=== PATIENT | male | born 1955 | race Caucasian/White ===

== ENCOUNTER 2019-01-22 08:42 | Day surgery (SDC) | payer MEDICARE, OTHER ==
[~2019-01-22] VITALS: Ht 182.9 cm; Wt 89.8 kg
[~2019-01-22 08:42] MED LIST: ASPIRIN325 MG PO; BACTRIM DS TAB1 EACH PO; CEPHALEXIN500 MG PO; COZAAR25 MG PO; DAILY VITAMIN1 EAC2 PO; DESONIDE15 G1 TP; FENOFIBRATE145 MG PO; HUMALOG100 UNIT/1 SUB-Q; LANTUS100 UNITS/ SUB-Q; LEVEMIR FL100 UNIT/2 SUB-Q; LIPITOR20 MG PO; LISINOPRIL5 MG PO; LOVASTATIN20 MG PO; NORCO 5-325 TA1 EACH PO; NOVOLOG FL100 UNIT/1 SUB-Q; OMEPRAZOLE20 MG PO; PRILOSEC20 MG PO; SULFAMETHOXAZO1 EAC1 PO; ULTRAM50 MG PO; VENTOLIN HFA18 GM INH; VITAMIN D5000 UNIT PO
--- NOTE | 2019-01-22 10:22 | NUR ---
01/22/19 Shryea2 [place] 1014-PATIENT ARRIVED TO PACU ON 3L NC REACTIVE TO VERBAL STIMULI OPENING EYES. VERY DROWSY BACK TO SLEEP SNORING. ABDOMEN SOFT. 1021-PATIENT AROUSES TO VERBAL STIMULI DENIES PAIN OR NAUSEA. COUGHING NONPRODUCTIVE. DOZES BACK TO SLEEP.
--- NOTE | 2019-01-23 06:17 | OR ---
[facility] [address] [place], [place] [address] Signed DATE OF OPERATION: 01/22/2019 SURGEON: Clau Ozuna MD PREOPERATIVE DIAGNOSES: 1. Gastroesophageal reflux disease. 2. Heartburn and nausea. 3. Asthma with cough variant. 4. Esophageal dysphagia. 5. Diarrhea. POSTOPERATIVE DIAGNOSES: 1. Mild gastroduodenitis. 2. Mkwtj-kc-wvxpimgd sized hiatal hernia. 3. Distal esophagitis. PROCEDURES: 1. Upper endoscopy. 2. Esophagogastroduodenoscopy with CLOtest and biopsies of the duodenum, pyloric bulb, antrum, and gastroesophageal junction. ESTIMATED BLOOD LOSS: None. INDICATIONS: Davian is a 63-year-old diabetic gentleman who has had significant trouble with asthma and a cough variant associated with heartburn and acid reflux. 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 He has been on his omeprazole and he feels like his symptoms have not changed. Of course, he is worried about hiatal hernia and acid reflux. He is aware that 98% of people with acid reflux will have a hiatal hernia. He said he has never had a previous upper endoscopy. He also mentions some esophageal dysphagia and diarrhea. He said he gave up cough and he does use quite a bit antacids as well. Of course, it is worse if he eats or drinks. In the office, I gave him a pamphlet on upper endoscopy. We looked at that together along with the risks including, but not limited to gas bloating, crampy abdominal pain, bleeding, perforation, requiring surgery, and missed diagnosis. He also understands the need for IV conscious sedation. He had expressed understanding and wished to proceed. PROCEDURE NOTE: Davian was taken into our endoscopy suite and placed in the supine semi-recumbent Electronically Signed By: CLAU OZUNA MD 01/23/19 0617 PATIENT NAME: DAVIAN PENA OPERATIVE REPORT DATE OF : 51 REPORT #: [id number] PHYSICIAN: CLAU OZUNA MD PCP: KAPIL CASILLAS DO REPORT IS CONFIDENTIAL AND NOT TO BE RELEASED WITHOUT AUTHORIZATION [facility] [address], [place] [address] Signed position. The posterior oropharynx was anesthetized with lidocaine spray. A bite block was utilized for the case. He was given a total of 10 mg of Versed and 100 mcg of fentanyl, and he was awake and talking to us as we left the room. He did get some clear saliva on his vocal cord and he was coughing and moving about quite a bit during the procedure. In fact, we initially placed our gastroscope in the posterior oropharynx and we stopped and had to give additional sedation and suctioned out the saliva. Eventually, we were able to pass the scope down the esophagus and out into the duodenum without resistance under direct visualization. The duodenum itself was fine. We took a biopsy of the duodenum because of the history of diarrhea. The pyloric bulb showed just a little irritation along with the stomach. We took biopsies of the pyloric bulb and antrum for pathologic review. A biopsy was taken of the antrum for CLOtest. Upon retroflexion of the scope, he clearly had a robby-tu-swgyfaus sized hiatal hernia. There were no gastric or esophageal varices. No ulcerations. The scope was withdrawn up through the area of the GE junction, which was compliant without stricture. He had gsyr-sf-jbbdgpdj disruption of his Z-line. No obvious Dhillon mucosa. We went ahead and took several biopsies along the Z-line. The distal middle and upper esophagus were unremarkable. After this, the gas was suctioned out and the gastroscope removed. Overall, Davian tolerated procedure quite well. RECOMMENDATIONS: I will see Davian back in my office in 7 to 14 days to review his results. He asked me not to talk to his brother currently and to review the results with him in the office. Clau Ozuna MD [facility] /[id number] cc: MD Rasheed Gordon MD Emily Castillo, ARNP Arian Kargar, DO Electronically Signed By: CLAU OZUNA MD 01/23/19 0617 PATIENT NAME: DAVIAN PENA OPERATIVE REPORT DATE OF : 51 REPORT #: [id number] PHYSICIAN: CLAU OZUNA MD PCP: KAPIL CASILLAS DO REPORT IS CONFIDENTIAL AND NOT TO BE RELEASED WITHOUT AUTHORIZATION [facility] [address] [place] [address] Signed Osmar Barrow MD Copies: CLAU OZUNA MD, TIMOTHY MD CASTILLO, EMILY ARNP KARGAR, ARIAN DO ROGERS,OSMAR BACA ~ Electronically Signed By: CLAU OZUNA MD 01/23/19 0617 PATIENT NAME: DAVIAN PENA OPERATIVE REPORT DATE OF : 51 REPORT #: [id number] PHYSICIAN: CLAU OZUNA MD PCP: KAPIL CASILLAS DO REPORT IS CONFIDENTIAL AND NOT TO BE RELEASED WITHOUT AUTHORIZATION
== END 2019-01-22 11:20 | disposition home or self-care (01) ==
LOC: OPS 08:42 → DS 08:42 → OPS 09:45
PROVIDERS: Colon & Rectal Surgery
PROC: 0DB78ZX Excision of Stomach, Pylorus, Via Natural or Artificial Opening Endoscopic, Diagnostic (ICD-10-PCS; 2019-01-22)
PROC: 0DB48ZX Excision of Esophagogastric Junction, Via Natural or Artificial Opening Endoscopic, Diagnostic (ICD-10-PCS; 2019-01-22)
PROC: 0DB98ZX Excision of Duodenum, Via Natural or Artificial Opening Endoscopic, Diagnostic (ICD-10-PCS; principal; 2019-01-22 09:45)
DX: K29.50 Unspecified chronic gastritis without bleeding (principal); K29.80 Duodenitis without bleeding; K31.9 Disease of stomach and duodenum, unspecified; K21.0 Gastro-esophageal reflux disease with esophagitis; K44.9 Diaphragmatic hernia without obstruction or gangrene; J45.909 Unspecified asthma, uncomplicated; E11.22 Type 2 diabetes mellitus with diabetic chronic kidney disease; N18.3 Chronic kidney disease, stage 3 (moderate); E78.5 Hyperlipidemia, unspecified; F17.200 Nicotine dependence, unspecified, uncomplicated; Z88.0 Allergy status to penicillin; Z79.899 Other long term (current) drug therapy; Z79.82 Long term (current) use of aspirin
CPT/HCPCS: 86677; 99153; G0500; J2250; J3010; J7120

== ENCOUNTER 2020-09-09 07:10 | Day surgery (SDC) | payer MEDICARE, OTHER ==
[~2020-09-09] VITALS: Ht 182.9 cm; Wt 86.4 kg
[~2020-09-09 07:10] MED LIST changes: +INVOKANA100 MG PO
--- NOTE | 2020-09-09 09:30 | NUR ---
09/09/20 0930 Edith Knowles 0858 PT ARRIVED IN PACU SLEEPY WITH NO C/O'S. ABD SOFT. 0905 PT AWAKE AND TALKING TO STAFF. 0915 SITTING UP IN BED TALKING TO STAFF. DC INSTRUCTIONS GIVEN. ALL QUESTIONS ANSWERED. 0930 LEFT VIA W/C.
--- NOTE | 2020-09-09 13:47 | OR ---
[facility] [address] [place], [place] [address] Signed DATE OF OPERATION: 09/09/2020 SURGEON: Clau Ozuna MD PREOPERATIVE DIAGNOSES: 1. Anemia. 2. Gastroesophageal reflux disease with his hiatal hernia. 3. Gastroduodenitis and esophagitis. 4. Prostate cancer, status post radiation therapy. 5. Internal and external hemorrhoids. 6. Cecal diverticula x2. POSTOPERATIVE DIAGNOSES: 1. Moderate sized hiatal hernia. 2. Moderate distal esophagitis. 3. Poor bowel prep. 4. Minimal external hemorrhoids. PROCEDURE: 1. Esophagogastroduodenoscopy with CLOtest and biopsies of the antrum and distal esophagus. 2. Limited colonoscopy without biopsy to 60 cm. ESTIMATED BLOOD LOSS: None. INDICATIONS: Davian is a 65-year-old diabetic gentleman, asked to see me for upper and lower endoscopy. He has been found to be anemic with a normal mean cell volume. He really has no lower GI complaints. He always has upper GI complaints associated with his hiatal hernias and his acid reflux. We just did his upper endoscopy in December 2018. We knew he had gastroduodenitis and distal esophagitis. He has also had prostate cancer requiring radiation treatment. He talked about a colonoscopy back in around 2011. He was known to have internal and external hemorrhoids at that time along with two diverticula in the cecum. He gives no family history of colon cancer or polyps. He is basically not able to go to sleep with standard Versed and fentanyl. Consequently, he requires monitored anesthesia care with propofol infusion. I had given Davian pamphlets on both upper and lower endoscopy. We did review the nature of the two tests along with the risks including, but not limited to gas bloating, crampy abdominal pain, bleeding, perforation requiring surgery, and missed diagnosis. We had reviewed our Electronically Signed By: CLAU OZUAN MD 09/09/20 6747 PATIENT NAME: DAVIAN PENA OPERATIVE REPORT DATE OF : 51 REPORT #: [id number] PHYSICIAN: CLAU OZUNA MD PCP: KAPIL CASILLAS DO REPORT IS CONFIDENTIAL AND NOT TO BE RELEASED WITHOUT AUTHORIZATION [facility] [address] [place], [place] [address] Signed instructions for the bowel prep line by line. However, he took one 32 ounce bottle and said he was vomiting and never finished the second 32 ounce bottle. He is still having dark brown particulate stool matter this morning. In addition, we scheduled him for monitored anesthesia care as described above. He had expressed understanding and wished to proceed. PROCEDURE NOTE: Davian was taken into our endoscopy suite and placed in the supine semi-recumbent position. He was given IV propofol per our nurse brush cutter. The adult gastroscope was introduced and advanced under direct visualization of camera. He had some fluid in his distal esophagus and we suctioned that out as well as in the hiatal hernia. When we got into his stomach, he had liquid particulate food matter in the antrum and we suctioned that out as well. All told, probably 200 mL or so of fluid had been suctioned out. He had at least two pills in the antrum of his stomach. We passed the scope out into the duodenum and it was unremarkable along with the pyloric bulb. The stomach itself really was unremarkable. No evidence of any inflammatory changes in the duodenum or the stomach on this occasion. We really could not get a good view of the cardia on retroflexion of the scope. The scope was withdrawn up through the area of the GE junction and we could clearly see he has a moderate sized hiatal hernia. No ulceration in the hernia. No Roxi-Mullins tear. However, he continues to have moderate distal esophagitis. There were several linear areas traveling more than 3 cm up from the GE junction. No Dhillon's mucosa. We were having a lot of trouble with the propofol infusion and even then he was awake, coughing and moving around and it was quite difficult. We had taken a biopsy from the antrum for CLOtest as well as pathologic review. We took another biopsy in the distal esophagus. The middle and upper esophagus were unremarkable. After this, the gas had been suctioned out and the gastroscope removed. Immediately following this, he was placed under general endotracheal tube anesthesia by our anesthesia provider. Davian was then rotated into the left lateral decubitus position. He did have liquid dark particulate stool matter. A digital rectal exam was performed and this showed minimal external hemorrhoids. The adult colonoscope was introduced and we encountered the liquid dark particulate stool matter in the rectum and up the left colon. His prep was just too poor to be of any clinical significance. We never went past 60 cm. This is distal to the splenic flexure. Consequently, we withdrew the scope and suctioned out the gas. He will need to repeat his colonoscopy with a more prolonged bowel prep in order to avert his nausea and vomiting. Overall, he tolerated the procedure quite well. RECOMMENDATIONS: I will see Davian back in my office in 7 to 14 days to review his results. He will need to reschedule his bowel prep throughout his entire day. He will need to finish his Electronically Signed By: CLAU OZUNA MD 09/09/20 6027 PATIENT NAME: DAVIAN PENA OPERATIVE REPORT DATE OF : 51 REPORT #: [id number] PHYSICIAN: CLAU OZUNA MD PCP: KAPIL CASILLAS DO REPORT IS CONFIDENTIAL AND NOT TO BE RELEASED WITHOUT AUTHORIZATION [address] [place], [place] [address] Signed Cardiology workup as well. I suspect his anemia is from his distal esophagitis. Clau Ozuna MD ALB/MODL /[id number] cc: DO Dr. Kody Winn MD Emily Castillo, ARNP Mathias Stroemel, DO Copies: KAPIL CASILLAS DAVID DAVIDSON, TIMOTHY MD CASTILLO, EMILY ARNP STROEMEL, MATHIAS DO ~ Electronically Signed By: CLAU OZUNA MD 09/09/20 1347 PATIENT NAME: DAVIAN PENA OPERATIVE REPORT DATE OF : 51 REPORT #: [id number] PHYSICIAN: CLAU OZUNA MD PCP: KAPIL CASILLAS DO REPORT IS CONFIDENTIAL AND NOT TO BE RELEASED WITHOUT AUTHORIZATION
--- NOTE | 2020-09-11 14:08 | PATH ---
[facility] [address] [place], [place] [address] Signed SPECIMEN(S): A ANTRUM/PYLORUS SPECIMEN(S): B DISTAL ESOPHAGUS SPECIMEN SOURCE: A. ANTRUM/PYLORUS B. DISTAL ESOPHAGUS CLINICAL HISTORY: Anemia, reflux, hiatal hernia, distal esophagitis. Esophagogastroduodenoscopy, colonoscopy. MICROSCOPIC DESCRIPTION: Histologic sections of all submitted blocks are examined by light microscopy. These findings, together with the gross examination, support the pathologic diagnosis. FINAL PATHOLOGIC DIAGNOSIS: A. Antrum/pylorus, biopsy: - Benign gastric mucosa with minimal vascular congestion. - Negative for intestinal metaplasia. - Negative for Helicobacter organisms on routine stain. B. "Distal esophagus", biopsy: - Gastric type mucosa with minimally increased chronic inflammation. - Negative for squamous epithelium. - Negative for intestinal metaplasia. DDF:cml:C2NR GROSS DESCRIPTION: Two specimens are received in two containers, labeled "Davian Collins." A. The specimen, labeled "KarinaDavian, #1," and designated on the requisition "antrum/pylorus," is received in formalin and consists of one smith soft tissue fragment that measures 0.4 cm in greatest dimension. The specimen is entirely submitted in cassette (A1). B. The specimen, labeled "Davian Collins, #2," and designated on the requisition "distal esophagus," is received in formalin and consists of one white-smith soft tissue fragment that measures 0.4 cm in greatest dimension. The specimen is entirely submitted in cassette (B1). FB (under the direct supervision of a pathologist) The Gross Description was prepared using a voice recognition system. The report was reviewed for accuracy; however, sound-alike word errors, addition and/or deletions may occur. If there is any question about this report, please contact Client Services. PATIENT NAME: DAVIAN COLLINS PATHOLOGY DATE OF : 51 REPORT #: [id number] PHYSICIAN: VANESSA GARNER PCP: KAPIL CASILLAS DO REPORT IS CONFIDENTIAL AND NOT TO BE RELEASED WITHOUT AUTHORIZATION [facility] [address] [place], [place] [address] Signed PERFORMING LABORATORY: The technical component was performed by [place] [address] (Incinerator Attendant: Ryanne Boston MD; CLIA# [id number]). Professional interpretation was performed by [employer] [facility], [address] [address] (CLIA# [id number]). Diagnostician: Magdaleno Garces DO Pathologist Electronically Signed 09/11/2020 Copies: ~ PATIENT NAME: DAVIAN COLLINS PATHOLOGY DATE OF : 51 REPORT #: [id number] PHYSICIAN: VANESSA PATHOLOGY PCP: KAPIL CASILLAS DO REPORT IS CONFIDENTIAL AND NOT TO BE RELEASED WITHOUT AUTHORIZATION
== END 2020-09-09 09:30 | disposition home or self-care (01) ==
LOC: OPS 07:10 → DS 07:10 → OPS 08:15
PROVIDERS: ATTEND Colon & Rectal Surgery
PROC: 0DB78ZX Excision of Stomach, Pylorus, Via Natural or Artificial Opening Endoscopic, Diagnostic (ICD-10-PCS; 2020-09-09)
PROC: 0DJD8ZZ Inspection of Lower Intestinal Tract, Via Natural or Artificial Opening Endoscopic (ICD-10-PCS; principal; 2020-09-09 08:15)
PROC: 0DB38ZX Excision of Lower Esophagus, Via Natural or Artificial Opening Endoscopic, Diagnostic (ICD-10-PCS; 2020-09-09 08:15)
DX: K21.00 Gastro-esophageal reflux disease with esophagitis, without bleeding (principal); K44.9 Diaphragmatic hernia without obstruction or gangrene; D64.9 Anemia, unspecified; K64.4 Residual hemorrhoidal skin tags; N18.30 Chronic kidney disease, stage 3 unspecified; I12.9 Hypertensive chronic kidney disease with stage 1 through stage 4 chronic kidney disease, or unspecified chronic kidney disease; E11.22 Type 2 diabetes mellitus with diabetic chronic kidney disease; E11.42 Type 2 diabetes mellitus with diabetic polyneuropathy; E78.00 Pure hypercholesterolemia, unspecified; E11.51 Type 2 diabetes mellitus with diabetic peripheral angiopathy without gangrene; E66.9 Obesity, unspecified; N52.9 Male erectile dysfunction, unspecified; Z85.46 Personal history of malignant neoplasm of prostate; Z79.82 Long term (current) use of aspirin; Z79.899 Other long term (current) drug therapy; Z79.4 Long term (current) use of insulin; Z88.0 Allergy status to penicillin; Z87.891 Personal history of nicotine dependence; Z91.040 Latex allergy status
CPT/HCPCS: 86677; J2704; J7121

== ENCOUNTER 2020-10-21 06:38 | Day surgery (SDC) | payer MEDICARE, OTHER ==
[~2020-10-21 06:38] MED LIST changes: +JARDIANCE10 MG PO; +VITAMIN D31250 MCG PO
--- NOTE | 2020-10-21 08:01 | NUR ---
10/21/20 0801 Lynne White 0754- PT TO PACU IN LL POSITION. DOES NOT RESPOND TO VERBAL OR TACTILE STIMULI. SLEEPING WITH ORAL AIRWAY IN PLACE. SPO2 100% ON 10 L O2 VIA SIMPLE MASK. BREATHING EASY AND UNLABORED. 0800- PT CONTINUES TO SLEEP IN LL POSITION WITH ORAL AIRWAY IN PLACE. PT DOES NOT RESPOND TO TACTILE OR VERBAL STIMULI. SPO2 100% O2 TITRATED DOWN TO 6 L O2 VIA SIMPLE MASK. BREATHING EASY AND UNLABORED.
--- NOTE | 2020-10-21 08:46 | NUR ---
PT ALERT, ORIENTED AND HAS HAD PREVIOUS SCOPE. ALL QUESTIONS ASKED ANSWERED. PT DID REQUEST PRAYER, OR STAFF WAITING FOR PT. WILL FOLLOW NEEDED
--- NOTE | 2020-10-21 10:38 | OR ---
[facility] [address] [place], [place] [address] Signed DATE OF OPERATION: 10/21/2020 SURGEON: Clau Ozuna MD PREOPERATIVE DIAGNOSES: 1. Anemia with hemoglobin 11.9 and mean cell volume 84. 2. Incomplete colonoscopy (60 cm). 3. History of prostate cancer, status post radiation therapy. 4. Internal and external hemorrhoids. 5. Cecal diverticula x2. POSTOPERATIVE DIAGNOSES: 1. Minimal right and left-sided diverticulosis. 2. Minimal internal and external hemorrhoids. 3. Minimal radiation proctitis. 4. 4 mm polyp at 10 cm. PROCEDURE: Colonoscopy with hot biopsy. ESTIMATED BLOOD LOSS: None. INDICATIONS: Davian is a 65-year-old diabetic gentleman, asked to see me for upper and lower endoscopy. He was having anemia. His hemoglobin is 11.9 with a mean cell volume of 84. We also know that he has a history of prostate cancer requiring radiation therapy. He is known to have internal and external hemorrhoids. Also from previous colonoscopy, we know he has two diverticula in the cecum. A few weeks ago we did his upper and lower endoscopy. However, his bowel prep was quite poor. We could not advance the scope pass 60 cm due to the liquid particulate stool matter. Consequently, he returns now after doing a full day a bowel prep. He said trying to do the bowel prep in the evening was a little too quick for him and he ended up vomiting. On this occasion, he said his bowel prep is much better. He is well aware of colonoscopy. He understands there is risk including, but not limited to gas bloating, crampy abdominal pain, bleeding, perforation requiring surgery, and missed diagnosis. Also because of his significant medical issues, we always asked to have an anesthesia provider to help us with increased monitoring sedation with propofol. He had expressed understanding and wished to proceed. Electronically Signed By: CLAU OZUNA MD 10/21/20 1038 PATIENT NAME: DAVIAN PENA OPERATIVE REPORT DATE OF : 51 REPORT #: [id number] PHYSICIAN: CLAU OZUNA MD PCP: JONATHON CASILLAS DO REPORT IS CONFIDENTIAL AND NOT TO BE RELEASED WITHOUT AUTHORIZATION [facility] [address] [place], [place] [address] Signed PROCEDURE NOTE: Davian was taken into our endoscopy suite and placed in the left lateral decubitus position. He was given IV sedation per our nurse linux systems administrator. A digital rectal exam was performed and he has good sphincter tone. He has very minimal external hemorrhoid tissue. The prostate is completely flattened and gone. After this, the adult colonoscope had been introduced and advanced all around into the cecum under direct visualization of camera. It took a little extra sedation and abdominal compression in order to advance the scope around hepatic flexure and down into the cecum itself. On this occasion, his prep was much better. He had just a few small areas of liquid particulate stool matter, most of that was suctioned out. We could easily see the two diverticula in the cecum. We could also see the appendiceal orifice and the ileocecal valve. The scope was then slowly withdrawn. We took several pictures throughout for photodocumentation. We found some additional diverticula in the left colon and sigmoid colon on this occasion. All-in-all these were small to moderate in size, few in number, and scattered about. Once down in the rectum, we saw just a tiny 4 mm polyp at about 10 cm. That was easily removed with the help of hot biopsy forceps. We could also see just a little radiation proctitis 4 or 5 cm above the from the anal verge. The scope had been retroflexed and no additional pathology was noted above the anal canal. He does have minimal internal hemorrhoid tissue. After this, the gas was suctioned out and the colonoscope removed. Davian tolerated his procedure quite well. RECOMMENDATIONS: I will see Davian back in my office in 7 to 14 days to review his results. Also, he needs followup on his solid-phase gastric emptying scan for evaluation of diabetic gastroparesis. Clau Ozuna MD ALB/MODL /[id number] cc: MD Jonathon Gordon DO Electronically Signed By: CLAU OZUNA MD 10/21/20 1038 PATIENT NAME: DAVIAN PENA OPERATIVE REPORT DATE OF : 51 REPORT #: [id number] PHYSICIAN: CLAU OZUNA MD PCP: JONATHON CASILLAS DO REPORT IS CONFIDENTIAL AND NOT TO BE RELEASED WITHOUT AUTHORIZATION [address] [address] Signed Copies: CLAU OZUNA MD, ARIAN DO ~ Electronically Signed By: CLAU OZUNA MD 10/21/20 1038 PATIENT NAME: DAVIAN PENA OPERATIVE REPORT DATE OF : 51 REPORT #: [id number] PHYSICIAN: CLAU OZUNA MD PCP: JONATHON CASILLAS DO REPORT IS CONFIDENTIAL AND NOT TO BE RELEASED WITHOUT AUTHORIZATION
--- NOTE | 2020-10-22 11:25 | PATH ---
[facility] [address] [place], [place] [address] Signed SPECIMEN(S): A COLON POLYP AT 10 CM SPECIMEN SOURCE: A. COLON POLYP AT 10 CM CLINICAL HISTORY: Colonoscopy with poss. biopsy and polypectomy w/mac. Anemia. Postop: Rectal polyp, radiation proctitis, internal and external hemorrhoids. MICROSCOPIC DESCRIPTION: Histologic sections of all submitted blocks are examined by light microscopy. These findings, together with the gross examination, support the pathologic diagnosis. FINAL PATHOLOGIC DIAGNOSIS: Colon, polyp at 10 cm, polypectomy: - Fragments of cauterized tubular adenoma. - Negative for high-grade dysplasia or malignancy. NAL:cml:C2NR GROSS DESCRIPTION: The specimen, labeled "MW, 1," and designated on the requisition "colon polyp at 10 cm," is received in formalin and consists of two smith soft tissue fragments that measure 0.3-0.4 cm in greatest dimension. The specimen is entirely submitted in cassette (A1). AT (under the direct supervision of a pathologist) The Gross Description was prepared using a voice recognition system. The report was reviewed for accuracy; however, sound-alike word errors, addition and/or deletions may occur. If there is any question about this report, please contact Client Services. PERFORMING LABORATORY: The technical component was performed by [email or web address], [address] [place] [id number] (Instrument Maker Apprentice: Ryanne Boston MD; CLIA# [id number]). [email or web address], [address] [address] (CLIA# [id number]). Diagnostician: Ada Mckeon MD Pathologist Electronically Signed 10/22/2020 PATIENT NAME: JESSICA PENA PATHOLOGY DATE OF : 51 REPORT #: [id number] PHYSICIAN: [facility] PCP: KAPIL CASILLAS DO REPORT IS CONFIDENTIAL AND NOT TO BE RELEASED WITHOUT AUTHORIZATION [address] [address] Signed Copies: ~ PATIENT NAME: JESSICA PENA PATHOLOGY DATE OF : 51 REPORT #: [id number] PHYSICIAN: VANESSA PATHOLOGY PCP: KAPIL CASILLAS DO REPORT IS CONFIDENTIAL AND NOT TO BE RELEASED WITHOUT AUTHORIZATION
== END 2020-10-21 08:45 | disposition home or self-care (01) ==
LOC: OPS 06:38 → DS 06:38 → OPS 06:45 → DS 06:45 → OPS 08:45
PROVIDERS: ATTEND Colon & Rectal Surgery
PROC: 0DBP8ZX Excision of Rectum, Via Natural or Artificial Opening Endoscopic, Diagnostic (ICD-10-PCS; principal; 2020-10-21 06:45)
DX: K62.1 Rectal polyp (principal); K57.90 Diverticulosis of intestine, part unspecified, without perforation or abscess without bleeding; K64.8 Other hemorrhoids; K64.4 Residual hemorrhoidal skin tags; K62.7 Radiation proctitis; D64.9 Anemia, unspecified; E10.22 Type 1 diabetes mellitus with diabetic chronic kidney disease; E10.42 Type 1 diabetes mellitus with diabetic polyneuropathy; E10.319 Type 1 diabetes mellitus with unspecified diabetic retinopathy without macular edema; E10.43 Type 1 diabetes mellitus with diabetic autonomic (poly)neuropathy; N18.30 Chronic kidney disease, stage 3 unspecified; K31.84 Gastroparesis; Z79.82 Long term (current) use of aspirin; Z85.46 Personal history of malignant neoplasm of prostate; Z92.3 Personal history of irradiation
CPT/HCPCS: 88305; J2704; J7121

== ENCOUNTER 2021-03-01 11:54 | Emergency (ER) | payer MEDICARE, OTHER ==
[~2021-03-01] VITALS: Ht 182.9 cm; Wt 86.2 kg
[2021-03-01] MEDS ORDERED: BRIMONIDINE TART5 ML OPTH (12:12)
[2021-03-01] MEDS ORDERED: ZOFRAN4 MG PO (14:44)
--- NOTE | 2021-03-03 13:32 | EKG ---
[facility] [address] [place] [address] Signed Normal sinus rhythm Normal ECG When compared with ECG of 15-OCT-2020 14:57, Criteria for Inferior infarct are no longer present Confirmed by KAYLEE ABDULLAHI MD ([id number]) on 03/03/2021 1:31:49 PM Electronically Signed By: KAYLEE ABDULLAHI MD 03/03/21 1332 PATIENT NAME: ROSEMARYCARLOTAJESSICA Electrocardiogram DATE OF : 51 PHYSICIAN: KAYLEE ABDULLAHI MD REPORT #: [id number] REPORT IS CONFIDENTIAL AND NOT TO BE RELEASED WITHOUT AUTHORIZATION
== END 2021-03-01 15:06 | disposition home or self-care (01) ==
LOC: ED 11:54
DX: E11.65 Type 2 diabetes mellitus with hyperglycemia (principal); K21.9 Gastro-esophageal reflux disease without esophagitis; Z87.891 Personal history of nicotine dependence; Z88.0 Allergy status to penicillin; Z79.899 Other long term (current) drug therapy; Z79.82 Long term (current) use of aspirin; Z79.4 Long term (current) use of insulin
CPT/HCPCS: 80053; 81001; 83690; 83735; 84484; 85025; 93005; 93010; 96374; 96375; 99284-25; J2405; J7030

== ENCOUNTER 2023-07-26 16:51 | Inpatient (IN) | payer MEDICARE, OTHER ==
[~2023-07-26] VITALS: Ht 182.9 cm; Wt 84.6 kg
[~2023-07-26 16:51] MED LIST changes: +BRIMONIDINE TART5 ML OPTH; -DAILY VITAMIN1 EAC2 PO; +DAILY VITAMIN1 EAC3 PO; -LEVEMIR FL100 UNIT/2 SUB-Q; +LEVEMIR100 UNIT/1 SUB-Q; -VITAMIN D31250 MCG PO; +VITAMIN D325 MCG PO; +ZOFRAN4 MG PO
[2023-07-26 18:02] LABS: BASOPHILS 0.2 % (0-2); EOSINOPHILS 0.1 % (0-6); HEMOGLOBIN 9.9 g/dL (12.0-18.0); LYMPHOCYTES 5.5 % (24-44); MCH 28.7 (27-36); MCV 84.4 fl (81-99); MONOCYTES 8.3 % (0-12); NEUTROPHILS 85.9 % (39-80); PLATELET COUNT 226 K/uL (140-440); RBC 3.44 M/ul (4.3-5.7); RDW 12.9 (10.5-15.0)
[2023-07-26 18:18] LABS: ALBUMIN 2.6 g/dL (3.4-5.0); ALBUMIN/GLOBULIN RATIO 0.65 (1.1-2.4); ANION GAP 12.1 (7-21); BILIRUBIN, TOTAL 0.8 ng/dL (0.2-1.0); BUN/CREATININE RATIO 12.13 (6.0-28.6); CALCIUM 9.2 mg/dL (8.5-10.1); CREATININE, SERUM 2.06 mg/dL (0.70-1.30); MAGNESIUM 1.7 mg/dL (1.8-2.4); POTASSIUM 4.1 mmol/L (3.5-5.1); PROTEIN, TOTAL 6.6 g/dL (6.4-8.2)
[2023-07-26 18:33] LABS: INFLUENZA B NAA NEGATIVE (NEGATIVE); RESPIRATORY SYNCYTIAL VIR NAA NEGATIVE (NEGATIVE)
[2023-07-26 21:06] LABS: BILIRUBIN, URINE NEGATIVE (negative); BLOOD/HGB, URINE SMALL (Negative); KETONE, URINE NEGATIVE (Negative); LEUK ESTERASE, URINE NEGATIVE (negative); NITRITE, URINE NEGATIVE (negative)
[2023-07-26 21:12] LABS: EPITHELIAL CELLS, URINE SQUAMOUS 1+ /lpf (0-1+); RED BLOOD CELLS, URINE 0-1 /hpf (0-5)
[2023-07-26 21:13] LABS: BACTERIA, URINE RARE /hpf (negative); CASTS, URINE NONE SEEN \\lpf; CRYSTALS, URINE NONE SEEN (0-1+); REFLEX CULTURE, URINE No (No)
[2023-07-26 21:24] VITALS: BP 125/56
--- NOTE | 2023-07-26 22:30 | EKG ---
[facility] [address] [facility] [place] [address] Signed Sinus rhythm with frequent premature ventricular complexes Otherwise normal ECG When compared with ECG of 01-MAR-2021 12:47, premature ventricular complexes are now present Confirmed by Hayden Tovar MD () on 07/26/2023 10:30:30 PM Electronically Signed By: HAYDEN TOVAR MD 07/26/232229 PATIENT NAME: BECKYJESSICA Electrocardiogram DATE OF : 51 PHYSICIAN: HAYDEN TOVAR MD REPORT #: [id number] REPORT IS CONFIDENTIAL AND NOT TO BE RELEASED WITHOUT AUTHORIZATION
[2023-07-27 02:39] VITALS: BP 128/52
[2023-07-27 05:41] LABS: BASOPHILS 0.7 % (0-2); EOSINOPHILS 0.2 % (0-6); HEMATOCRIT 25.2 % (35.0-50.0); HEMOGLOBIN 8.7 g/dL (12.0-18.0); LYMPHOCYTES 8.3 % (24-44); MCH 29.4 (27-36); MCHC 34.7 g/dl (30-36); MCV 84.9 fl (81-99); MONOCYTES 9.9 % (0-12); NEUTROPHILS 80.9 % (39-80); PLATELET COUNT 198 K/uL (140-440); RBC 2.97 M/ul (4.3-5.7); RDW 12.9 (10.5-15.0)
[2023-07-27 05:59] LABS: ALBUMIN 2.2 g/dL (3.4-5.0); ALBUMIN/GLOBULIN RATIO 0.59 (1.1-2.4); ANION GAP 10.2 (7-21); BILIRUBIN, TOTAL 0.5 ng/dL (0.2-1.0); BUN/CREATININE RATIO 12.64 (6.0-28.6); CREATININE, SERUM 1.74 mg/dL (0.70-1.30); POTASSIUM 4.2 mmol/L (3.5-5.1); PROTEIN, TOTAL 5.9 g/dL (6.4-8.2)
[2023-07-27 06:05] VITALS: BP 128/52
[2023-07-27 09:03] VITALS: BP 113/48
[2023-07-27] MEDS ORDERED: ATORVASTATIN CA40 MG PO (09:15)
[2023-07-27] MEDS ORDERED: LOSARTAN POTAS100 MG PO (09:16)
[2023-07-27] MEDS ORDERED: NOVOLOG100 UNIT/2 SUB-Q (09:18)
[2023-07-27] MEDS ORDERED: FENOFIBRATE48 MG PO (09:19)
[2023-07-27] MEDS ORDERED: LEVOTHYROXINE50 MCG PO (09:21)
[2023-07-27] MEDS ORDERED: TRULICITY0.75 MG/0. SUB-Q (10:55)
[2023-07-27 14:01] VITALS: BP 145/64
[2023-07-27 18:13] VITALS: BP 140/62
[2023-07-27 21:10] VITALS: BP 122/44
[2023-07-28 01:53] VITALS: BP 112/54
[2023-07-28 05:35] LABS: BASOPHILS 0.6 % (0-2); EOSINOPHILS 0.7 % (0-6); HEMATOCRIT 24.4 % (35.0-50.0); HEMOGLOBIN 8.3 g/dL (12.0-18.0); LYMPHOCYTES 5.9 % (24-44); MCH 28.7 (27-36); MCHC 33.9 g/dl (30-36); MCV 84.7 fl (81-99); MONOCYTES 6.8 % (0-12); PLATELET COUNT 188 K/uL (140-440); RBC 2.88 M/ul (4.3-5.7); RDW 12.9 (10.5-15.0)
[2023-07-28 06:07] LABS: ALBUMIN 1.9 g/dL (3.4-5.0); ALBUMIN/GLOBULIN RATIO 0.51 (1.1-2.4); ANION GAP 11.2 (7-21); BILIRUBIN, TOTAL 0.5 ng/dL (0.2-1.0); BUN/CREATININE RATIO 15.46 (6.0-28.6); CALCIUM 8.5 mg/dL (8.5-10.1); CREATININE, SERUM 1.94 mg/dL (0.70-1.30); POTASSIUM 4.2 mmol/L (3.5-5.1); PROTEIN, TOTAL 5.6 g/dL (6.4-8.2)
[2023-07-28 06:27] VITALS: BP 134/44
[2023-07-28 08:46] VITALS: BP 119/59
[2023-07-28 13:53] VITALS: BP 116/61
[2023-07-28 18:01] VITALS: BP 148/63
[2023-07-28 21:02] VITALS: BP 134/73
--- NOTE | 2023-07-28 23:00 | EKG ---
[facility] [address] [facility] [place] [address] Signed Normal sinus rhythm Low voltage QRS Borderline ECG When compared with ECG of 26-JUL-2023 17:50, premature ventricular complexes are no longer present Confirmed by Hayden Tovar MD () on 07/28/2023 11:00:37 PM Electronically Signed By: HAYDEN TOVAR MD 07/28/230 PATIENT NAME: BECKYJESSICA Electrocardiogram DATE OF : 51 PHYSICIAN: HAYDEN TOVAR MD REPORT #: [id number] REPORT IS CONFIDENTIAL AND NOT TO BE RELEASED WITHOUT AUTHORIZATION
[2023-07-29 05:18] LABS: BASOPHILS 0.4 % (0-2); EOSINOPHILS 1.3 % (0-6); HEMATOCRIT 25.1 % (35.0-50.0); HEMOGLOBIN 8.6 g/dL (12.0-18.0); LYMPHOCYTES 7.3 % (24-44); MCH 29.2 (27-36); MCHC 34.1 g/dl (30-36); MCV 85.7 fl (81-99); MONOCYTES 6.6 % (0-12); NEUTROPHILS 84.4 % (39-80); PLATELET COUNT 221 K/uL (140-440); RBC 2.93 M/ul (4.3-5.7); RDW 12.9 (10.5-15.0)
[2023-07-29 05:24] VITALS: BP 155/67
[2023-07-29 05:35] LABS: ALBUMIN 1.8 g/dL (3.4-5.0); ALBUMIN/GLOBULIN RATIO 0.45 (1.1-2.4); ANION GAP 14.2 (7-21); BILIRUBIN, TOTAL 0.4 ng/dL (0.2-1.0); BUN/CREATININE RATIO 13.73 (6.0-28.6); CALCIUM 8.6 mg/dL (8.5-10.1); CREATININE, SERUM 1.82 mg/dL (0.70-1.30); POTASSIUM 4.2 mmol/L (3.5-5.1); PROTEIN, TOTAL 5.8 g/dL (6.4-8.2)
[2023-07-29 10:16] VITALS: BP 127/57
[2023-07-29 14:10] VITALS: BP 137/93
[2023-07-29 18:24] VITALS: BP 149/68; BP 149/688
[2023-07-29 21:17] VITALS: BP 151/64
[2023-07-30 06:13] VITALS: BP 125/62
[2023-07-30] MEDS ORDERED: CLINDAMYCIN HC300 MG PO (08:05)
[2023-07-30] MEDS ORDERED: CIPROFLOXACIN500 MG PO (08:05)
== END 2023-07-30 12:40 | disposition home or self-care (01) | DRG 854 ==
LOC: ED 16:51 → MS 20:34
PROVIDERS: Emergency Medicine; ADMIT Family Medicine; ATTEND Internal Medicine
PROC: 3E03329 Introduction of Other Anti-infective into Peripheral Vein, Percutaneous Approach (ICD-10-PCS; 2023-07-26)
PROC: 0JBR0ZZ Excision of Left Foot Subcutaneous Tissue and Fascia, Open Approach (ICD-10-PCS; principal; 2023-07-27)
PROC: 0JDR0ZZ Extraction of Left Foot Subcutaneous Tissue and Fascia, Open Approach (ICD-10-PCS; 2023-07-28)
PROC: 0J9R0ZZ Drainage of Left Foot Subcutaneous Tissue and Fascia, Open Approach (ICD-10-PCS; 2023-07-29)
PROC: 0JDR0ZZ Extraction of Left Foot Subcutaneous Tissue and Fascia, Open Approach (ICD-10-PCS; 2023-07-30)
DX: A41.9 Sepsis, unspecified organism (principal); M00.9 Pyogenic arthritis, unspecified; M86.9 Osteomyelitis, unspecified; N17.9 Acute kidney failure, unspecified; E11.621 Type 2 diabetes mellitus with foot ulcer; L97.524 Non-pressure chronic ulcer of other part of left foot with necrosis of bone; L03.032 Cellulitis of left toe; E11.69 Type 2 diabetes mellitus with other specified complication; E11.65 Type 2 diabetes mellitus with hyperglycemia; E11.22 Type 2 diabetes mellitus with diabetic chronic kidney disease; N18.30 Chronic kidney disease, stage 3 unspecified; R94.5 Abnormal results of liver function studies; Z88.0 Allergy status to penicillin; Z87.891 Personal history of nicotine dependence; Z79.82 Long term (current) use of aspirin; Z79.4 Long term (current) use of insulin
CPT/HCPCS: 36415; 73630; 73723; 80053; 81001; 82553; 83036; 83605; 83735; 84100; 85025; 87040; 87502; 93005; 93010; A9270; A9577; A9579; J0692; J0696; J0878; J1650; J1815; J1885; J2405; J3475; J7121; U0002